=== PATIENT | female | born 1980 | race Two or more races ===

== ENCOUNTER 2023-01-18 23:47 | Emergency (ER) | payer MEDICAID, OTHER ==
[~2023-01-18] VITALS: Ht 160 cm; Wt 97.7 kg
[2023-01-19 00:20] VITALS: BP 137/86; PULSE 111; RESP 16; O2SAT 98
== END 2023-01-19 02:35 | disposition left against medical advice (07) ==
LOC: ER 23:54
DX: K08.89 Other specified disorders of teeth and supporting structures (principal); Z53.21 Procedure and treatment not carried out due to patient leaving prior to being seen by health care provider